=== PATIENT | male | born 1960 | race African-American/Black ===

== ENCOUNTER 2018-01-05 10:58 | Inpatient (IN) | payer SELFPAY ==
--- NOTE | 2018-01-05 11:06 | DR.SOBA ---
HPI - Time Seen Time seen: 10:50 - HPI Comment HPI Comment: HISTORY BELOW. - Complaints Chief Complaint Doctors Comments: INCREASING SOB, EDEMA AND CHEST PAIN. SYMPTOMS WORSE TODAY. BP ELEVATED. NO HISTORY OF HTN. PATIENT SAID HE DOES NOT TAKE MEDICATIONS ON DAILY BASES AND HAVE NO KNOWN MEDICAL ILLNESS. OXYGEN DESATURATION IN THE 80S WAS NOTED IN ED. - Reviewed Nurses Notes Reviewed: Yes - Source History Provided: Patient - Mode of Arrival Mode of Arrival: Ambulatory - Duration Duration: Days - Context Onset:: At Rest PE Risk Factors:: None History of:: None Currently on:: Neither Prehospital Care:: None - Modifying Factors Worsens:: Lying Flat Improves:: Sitting Up - Associated Signs and Symptoms Associated Signs and Symptoms: Wheeze - If Chest Pain Quality: Sharp Location: Substernal - If Cough Cough: Productive, White ROS - Review of Systems Constitutional: Weakness, Fatigue Eyes: No Symptoms Reported ENTM: Nose Congestion Respiratoy: Short of Breath, Wheezing. negative: Hemoptysis Cardiovascular: Edema Gastrointestinal/Abdominal: Abdominal Pain Genitourinary: No Symptoms Reported Neurological: Weakness Musculoskeletal: No Symptoms Reported Integumentary: No Symptoms Reported Hematologic/Lymphatic: No Symptoms Reported Endocrine: No Symptoms Reported All Other Systems: Reviewed and Negative PE - Vital Signs Vitals: Temperature 98.2 F Pulse Rate [Right Radial] 113 Pulse Rate 112 Respiratory Rate 40 Blood Pressure [Left Arm] 183/126 Blood Pressure 156/107 O2 Sat by Pulse Oximetry 97 - General Limitations: No Limitations General Appearance: Alert - Head Head Exam: Normal Inspection - Eyes Eye exam: Normal Appearance - ENT ENT Exam: Normal External Ear Exam - Neck Neck Exam: Trachea Midline - Chest Chest Inspection: Symmetric Chest Wall Rise - Respiratory Respiratory Exam: Normal Lung Sounds Bilat Respiratory Exam: Bilateral Wheezing, Bilateral Rhonchi, Left Wheezing, Left Rhonchi, Right Wheezing, Right Rhonchi, Upper Wheezing, Upper Rhonchi, Lower Wheezing, Lower Rhonchi - Cardiovascular Cardiovascular Exam: Regular Rate - Abdominal Exam Abdominal Exam: Normal Bowel Sounds, Soft. negative: Tenderness - Extremities Extremities Exam: Edema (3 PLUS EDEMA LOWER EXTREMITIES.) - Back Back Exam: Normal Inspection - Neurologic Neurological Exam: Alert, Oriented X3 - Psychiatric Psychiatric Exam: Normal Affect, Normal Mood - Skin Skin Exam: Normal Color MDM - Differential Diagnosis Differential Diagnosis: CHF, Mycardial Infarction, Pulmonary embolism, Respiratory Insufficiency Course - Treatment Treatment: SEE ORDERS. - Education/Counseling Education/Counseling: Patient, Education Educated On: Diagnosis ROR - Labs Reviewed Laboratory Results Reviewed?: Yes Result Diagrams: 01/05/18 11:12 01/05/18 11:12 Laboratory: WBC 7.3 X10^3/uL (3.6-10.0) 01/05/18 11:12 RBC 4.56 X10^6/uL (4.7-6.0) L 01/05/18 11:12 Hgb 14.0 g/dL (13.5-18.0) 01/05/18 11:12 Hct 41.3 % (42.0-54.0) L 01/05/18 11:12 MCV 90.6 fL (80.0-100.0) 01/05/18 11:12 MCH 30.8 pg (27.0-34.0) 01/05/18 11:12 MCHC 34.0 g/dL (33.0-35.0) 01/05/18 11:12 RDW 13.5 % (11.6-16.5) 01/05/18 11:12 Plt Count 444 X10^3/uL (150.0-450.0) 01/05/18 11:12 MPV 8.7 fL (7.4-11.0) 01/05/18 11:12 Neut % (Auto) 72.0 % (42.0-75.0) 01/05/18 11:12 Lymph % (Auto) 16.3 % (21.0-51.0) L 01/05/18 11:12 [place] % (Auto) 9.5 % (0.0-13.0) 01/05/18 11:12 Eos % (Auto) 0.8 % (0.9-2.9) L 01/05/18 11:12 Baso % (Auto) 1.4 % (0.2-1.0) H 01/05/18 11:12 Neut # (Auto) 5.2 x10^3/uL (2.2-4.8) H 01/05/18 11:12 Lymph # (Auto) 1.2 X10^3/uL (1.3-2.9) L 01/05/18 11:12 [place] # (Auto) 0.7 x10^3/uL (0.3-0.8) 01/05/18 11:12 Eos # (Auto) 0.1 x10^3/uL (0.0-0.2) 01/05/18 11:12 Baso # (Auto) 0.1 X10^3/uL (0.0-0.1) 01/05/18 11:12 Absolute Nucleated RBC 0.1 /100WBC 01/05/18 11:12 Sodium 142 mmol/L (136-145) 01/05/18 11:12 Corrected Sodium TNP 01/05/18 11:12 Potassium 3.8 mmol/L (3.5-5.1) 01/05/18 11:12 Chloride 101 mmol/L (98-107) 01/05/18 11:12 Carbon Dioxide 32.1 mmol/L (21-32) H 01/05/18 11:12 BUN 13 mg/dL (7-18) 01/05/18 11:12 Creatinine 1.18 mg/dL (0.70-1.30) 01/05/18 11:12 Est GFR (MDRD) Af Amer > 60 (>60) 01/05/18 11:12 Est GFR (MDRD) Non-Af > 60 (>60) 01/05/18 11:12 Glucose 107 mg/dL (65-99) H 01/05/18 11:12 Calcium 8.9 mg/dL (8.5-10.1) 01/05/18 11:12 Corrected Calcium 9.7 mg/dL (8.5-10.1) 01/05/18 11:12 Total Bilirubin 0.90 mg/dL (0.2-1.0) 01/05/18 11:12 AST 32 Units/L (15-37) 01/05/18 11:12 ALT 44 Units/L (12-78) 01/05/18 11:12 Alkaline Phosphatase 104 Units/L (46-116) 01/05/18 11:12 Creatine Kinase 165 Units/L (39-308) 01/05/18 13:32 CK-MB (CK-2) 1.4 ng/mL (0-4.0) 01/05/18 13:32 CK/CKMB % Calc 0.9 % (<4) 01/05/18 13:32 Troponin I 0.06 ng/mL (0-1.5) 01/05/18 13:32 B-Natriuretic Peptide 890 pg/mL (0-79) H* 01/05/18 11:12 Total Protein 8.3 g/dL (6.4-8.2) H 01/05/18 11:12 Albumin 3.0 g/dL (3.4-5.0) L 01/05/18 11:12 Globulin 5.3 g/dL (2.5-4.5) H 01/05/18 11:12 Albumin/Globulin Ratio 0.6 Ratio (1.1-2.1) L 01/05/18 11:12 - XRAY XRAY Interpreted by: Radiologist XRAY Findings: REPORT DISCUSS WITH PATIENT. - EKG Rhythm: ST (EKG NOTED.) - Diagnosis Discharge Problem: Abnormal cardiac enzyme level CHF (congestive heart failure) Qualifiers: Heart failure type: unspecified Heart failure chronicity: acute Qualified Code( s): I50.9 - Heart failure, unspecified Hypertension Qualifiers: Hypertension type: unspecified Qualified Code(s): I10 - Essential (primary) hypertension - Discharge Plan Disposition: ADMITTED INPATIENT Condition: Stable - Follow ups/Referrals - Instructions
[2018-01-05 11:23] LABS: BASOPHILS # (AUTO) 0.1 X10^3/uL (0.0-0.1); BASOPHILS % (AUTO) 1.4 % (0.2-1.0); EOSINOPHILS # (AUTO) 0.1 x10^3/uL (0.0-0.2); EOSINOPHILS % (AUTO) 0.8 % (0.9-2.9); HEMATOCRIT 41.3 % (42.0-54.0); LYMPHOCYTES # (AUTO) 1.2 X10^3/uL (1.3-2.9); LYMPHOCYTES % (AUTO) 16.3 % (21.0-51.0); MEAN CORPUSCULAR HEMOGLOBIN 30.8 pg (27.0-34.0); MEAN CORPUSCULAR VOLUME 90.6 fL (80.0-100.0); MEAN PLATELET VOLUME 8.7 fL (7.4-11.0); MONOCYTES # (AUTO) 0.7 x10^3/uL (0.3-0.8); MONOCYTES % (AUTO) 9.5 % (0.0-13.0); NEUTROPHILS # (AUTO) 5.2 x10^3/uL (2.2-4.8); PLATELET COUNT 444 X10^3/uL (150.0-450.0); RED BLOOD COUNT 4.56 X10^6/uL (4.7-6.0); RED CELL DISTRIBUTION WIDTH 13.5 % (11.6-16.5); WHITE BLOOD COUNT 7.3 X10^3/uL (3.6-10.0)
[2018-01-05] MEDS ORDERED: DUONEB 0.5 MG/3 MG NEB ONE (11:24)
[2018-01-05 11:40] LABS: BLOOD UREA NITROGEN 13 mg/dL (7-18); CALCIUM 8.9 mg/dL (8.5-10.1); CARBON DIOXIDE 32.1 mmol/L (21-32); CHLORIDE 101 mmol/L (98-107); CREATININE 1.18 mg/dL (0.70-1.30); SODIUM 142 mmol/L (136-145); TROPONIN I 0.06 ng/mL (0-1.5); eGFR BLACK RACES > 60 (>60); eGFR NON BLACK RACES > 60 (>60)
[2018-01-05 11:44] LABS: ALANINE AMINOTRANSFERASE 44 Units/L (12-78); ALKALINE PHOSPHATASE 104 Units/L (46-116); ASPARTATE AMINO TRANSFERASE 32 Units/L (15-37); CKMB % 0.8 % (<4); COR CA(FOR HYPOALB) 9.7 mg/dL (8.5-10.1); CREATINE KINASE 161 Units/L (39-308); CREATINE KINASE MB 1.3 ng/mL (0-4.0); TOTAL PROTEIN 8.3 g/dL (6.4-8.2)
[2018-01-05 11:48] LABS: B-TYPE NATRIURETIC PEPTIDE 890 pg/mL (0-79)
[2018-01-05] MEDS ORDERED: CATAPRES TAB 0.2 MG PO ONE (12:10)
[2018-01-05] MEDS ORDERED: CATAPRES TAB 0.2 MG ONE (12:28)
--- NOTE | 2018-01-05 13:26 | RAD ---
HISTORY: Shortness of breath Study: AP portable chest Comparison: None Findings: There appears to be moderate to moderately severe congestive heart failure. There appear to be small bilateral pleural effusions. Moderate to mildly severe cardiomegaly is present. Widening of the ellis perior mediastinum is noted, most likely due to patient body habitus. No evidence of pneumothorax is noted. No acute bony abnormalities are identified. IMPRESSION: 1. Moderate to moderately severe cardiomegaly with findings suggesting moderate to moderately severe congestive heart failure. I cannot exclude underlying pneumonia. Reported By:
[2018-01-05 13:59] LABS: CKMB % 0.9 % (<4); CREATINE KINASE MB 1.4 ng/mL (0-4.0); TROPONIN I 0.06 ng/mL (0-1.5)
[2018-01-05 16:18] VITALS: BMI 35.2
[2018-01-05 18:41] LABS: CKMB % 0.9 % (<4); CREATINE KINASE MB 1.3 ng/mL (0-4.0); TROPONIN I 0.06 ng/mL (0-1.5)
[2018-01-05] MEDS ORDERED: AMBIEN PO PRN (19:37)
[2018-01-05] MEDS ORDERED: TUSSIONEX PENNKINETIC SUSP PO PRN (19:37)
[2018-01-05] MEDS: ZESTRIL TAB 10 MG PO SCH (20:11)
[2018-01-05] MEDS: LASIX IVP SCH (20:11)
[2018-01-05] MEDS: MICRO K EXTEN CAP 10 MEQ PO SCH (20:11)
[2018-01-06 01:33] LABS: CREATINE KINASE MB 1.4 ng/mL (0-4.0); TROPONIN I 0.06 ng/mL (0-1.5)
[2018-01-06 06:23] LABS: BASOPHILS # (AUTO) 0.1 X10^3/uL (0.0-0.1); EOSINOPHILS # (AUTO) 0.2 x10^3/uL (0.0-0.2); EOSINOPHILS % (AUTO) 2.6 % (0.9-2.9); HEMATOCRIT 37.7 % (42.0-54.0); HEMOGLOBIN 12.7 g/dL (13.5-18.0); LYMPHOCYTES # (AUTO) 1.3 X10^3/uL (1.3-2.9); LYMPHOCYTES % (AUTO) 15.7 % (21.0-51.0); MEAN CORPUSCULAR HEMOGLOBIN 30.6 pg (27.0-34.0); MEAN CORPUSCULAR HGB CONC 33.7 g/dL (33.0-35.0); MEAN CORPUSCULAR VOLUME 90.8 fL (80.0-100.0); MEAN PLATELET VOLUME 9.2 fL (7.4-11.0); MONOCYTES # (AUTO) 0.8 x10^3/uL (0.3-0.8); MONOCYTES % (AUTO) 9.4 % (0.0-13.0); NEUTROPHILS # (AUTO) 5.7 x10^3/uL (2.2-4.8); NEUTROPHILS % (AUTO) 71.3 % (42.0-75.0); PLATELET COUNT 393 X10^3/uL (150.0-450.0); RED BLOOD COUNT 4.16 X10^6/uL (4.7-6.0); RED CELL DISTRIBUTION WIDTH 13.8 % (11.6-16.5); WHITE BLOOD COUNT 8.1 X10^3/uL (3.6-10.0)
[2018-01-06 06:46] LABS: ALANINE AMINOTRANSFERASE 42 Units/L (12-78); ALBUMIN 2.5 g/dL (3.4-5.0); ALKALINE PHOSPHATASE 89 Units/L (46-116); ASPARTATE AMINO TRANSFERASE 31 Units/L (15-37); BLOOD UREA NITROGEN 16 mg/dL (7-18); CALCIUM 8.3 mg/dL (8.5-10.1); CARBON DIOXIDE 33.6 mmol/L (21-32); CHLORIDE 105 mmol/L (98-107); CHOL/HDL RATIO 4.3 (0.0-5.0); CHOLESTEROL 107 mg/dL (0-200); COR CA(FOR HYPOALB) 9.5 mg/dL (8.5-10.1); CREATININE 1.13 mg/dL (0.70-1.30); HDL CHOLESTEROL 25 mg/dL (40-60); SODIUM 145 mmol/L (136-145); TOTAL PROTEIN 7.1 g/dL (6.4-8.2); TRIGLYCERIDES 78 mg/dL (0-150); eGFR BLACK RACES > 60 (>60); eGFR NON BLACK RACES > 60 (>60)
--- NOTE | 2018-01-06 07:20 | RAD ---
HISTORY: 57-year-old male with CHF. Study: Frontal view of the chest. Comparison: Chest radiograph 01/05/2018 Findings: The trachea is midline. The cardiac silhouette is stably enlarged with worsening diffuse bilateral h azy/patchy airspace opacities and likely trace effusions. No pneumothorax. Soft tissues are unremark able. Osseous structures are unremarkable. IMPRESSION: 1. Worsening airspace disease likely human resources representative of worsening pulmonary edema in the setting of ca rdiomegaly with history of CHF. Correlate with serology for CHF exacerbation and underlying infectiou s process. Reported By:
[2018-01-06] MEDS ORDERED: K-LYTE EFFERVESCENT PO PRN (07:57)
[2018-01-06] MEDS ORDERED: MAGNESIUM SULFATE 1 GM/100 mL PREMIX 1 GM/100 ML BAG IV PRN (07:57)
[2018-01-06] MEDS ORDERED: K-RIDER 10 MEQ/NS 100 ML 10 MEQ/100 ML BAG IV PRN (07:57)
[2018-01-06] MEDS ORDERED: POTASSIUM CHL 40 MEQ/NS 0.45% 500 ML IV PRN (07:57)
[2018-01-06] MEDS ORDERED: POTASSIUM CHLORIDE LIQ 20 MEQ UDC PO PRN (07:57)
[2018-01-06] MEDS ORDERED: POTASSIUM CHL 60 MEQ/NS 0.45% 500 ML IV PRN (07:57)
[2018-01-06] MEDS ORDERED: LASIX IVP SCH ×2 (09:00→14:00)
[2018-01-06] MEDS ORDERED: LASIX ONE (09:06)
[2018-01-06] MEDS: ZESTRIL TAB 10 MG PO SCH (09:40)
[2018-01-06] MEDS: LASIX IVP SCH (09:40)
[2018-01-06] MEDS: MICRO K EXTEN CAP 10 MEQ PO SCH (09:41)
--- NOTE | 2018-01-06 11:47 | DR.H&P ---
H&P - History & Physical for Day of: H&P Date: 01/05/18 - Chief Complaint Chief Complaint: SOB - Allergies Allergies/Adverse Reactions: Allergies Allergy/AdvReac Type Severity Reaction Status Date / Time No Known Drug Allergies Allergy Verified 01/05/18 11:00 - History of Present Illness History of Present Illness: 57BM ER ADMISSION WITH CO CHEST PRESSURE, SOB. PT CXR REVEALED FINDING OF CHF. PT DENIES ANY HX OF HTN OR CARDIAC DISEASE. PT STATES HE IS A DAILY SMOKER AND DRINKS ETOH ~1 PINT PER WEEK. PT STATES SYMPTOMS COME ON FAST WITH CHEST PRESSURE AND SOB. PT DENIES ANY HX OF ASTHMA. CO OCCASSIONAL SEASONAL ALLERGIES. PT ADMITTED ICU FOR TREATMENT OF CHF AND CARDIAC MONITORING - Past Medical History Additional Medical History: ALLERGIES, SEASONAL - Past Surgical History Surgical History: Abdominal Surgery - Family History Family Medical History: Diabetes Mellitus, Cancer - Social History Does patient currently use any type of tobacco product: Yes Have you used tobacco products in the last 12 months: Yes Type of Tobacco Use: Cigarettes How many years tobacco product used: 20 Does any household member use tobacco: No Alcohol Use: None Drug Use: None - Medications Home Medications: NK [NK] 01/05/18 [History Confirmed 01/05/18] - Review of Systems Constitutional: Malaise Eyes: No Symptoms Reported ENT: No Symptoms Reported Respiratory: Shortness of Breath, SOB with Excertion, Wheezing Cardiovascular: Chest Pain, Edema Gastrointestinal: No Symptoms Reported Genitourinary: No Symptoms Reported Musculoskeletal: No Symptoms Reported Skin: No Symptoms Reported Neurological: No Symptoms Reported - Physical Exam Vital Signs: Temperature 98.1 F Pulse Rate [Apical] 100 Pulse Rate [Right Radial] 96 Pulse Rate 112 Respiratory Rate 32 Blood Pressure [Left Arm] 144/100 Blood Pressure 156/107 O2 Sat by Pulse Oximetry 94 Oriented: Normal Eyes: Normal Ear: Normal Nose: Normal Throat: Normal Respiratory: RML Diminished, RLL Diminished, LML Diminished, LLL Diminished Cardiovascular: Normal, Edema : Normal Auscultation: Bowel Sounds: Normal Palpation: Normal Tenderness: Normal Skin: Normal Musculoskeletal: Normal Psychiatric: Anxiety Speech Pattern: Clear, Appropriate - Assessment/Plan (1) Abnormal cardiac enzyme level Status: Acute Plan: ADMIT, ICU CARDIAC MONTORING. SERIAL CE AND EKG. IV LASIX, BP CONTROL. REPEAT AM CXR (2) CHF (congestive heart failure) Qualifiers: Heart failure type: unspecified Heart failure chronicity: acute Qualified Code(s): I50.9 - Heart failure, unspecified Status: Acute (3) Hypertension Qualifiers: Hypertension type: unspecified Qualified Code(s): I10 - Essential (primary ) hypertension Status: Acute
[2018-01-06] MEDS: XOPENEX 1.25 MG/3 ML NEBULE NEB SCH ×3 (12:04→16:19)
[2018-01-06] MEDS ORDERED: NS 100 ML IV 100 ML IV ONE (12:24)
--- NOTE | 2018-01-06 13:22 | CT ---
CT ANGIOGRAPHY OF THE CHEST CLINICAL HISTORY: 57-year-old male with shortness of breath. COMPARISON: None. TECHNIQUE: CT angiogram of the chest was performed following the uncomplicated administration of 75 m L Omnipaque 350 intravenous contrast as per routine pulmonary embolus protocol. Coronal and Sagittal reformats provided. MIP reformats are submitted for review. FINDINGS: No pulmonary embolus is seen. There is no thoracic aortic dissection. Significant cardiomegaly without pericardial effusion. There is no axillary or mediastinal lymphaden opathy. Diffuse regions of ground-glass opacity/consolidation with air bronchograms throughout the left upper and lower lobes and to a lesser extent within the right upper lobe, right middle lobe and right lowe r lobe. Small effusions, right greater the left with fluid within the fissures bilaterally. The trach ea and mainstem bronchi are patent. No pneumothorax. Imaged upper abdomen is unremarkable. The arteriovascular structures are within normal limits. Soft tissues are normal. The osseous structures are intact without fracture or malalignment. IMPRESSION: 1. No pulmonary embolus. 2. Diffuse ground-glass opacity with air bronchograms throughout the lungs with small bilateral effus ions and fluid within the fissures. Edema, infection and hemorrhage can present this way, most likely represents a component of edema with diffuse infection. Correlate clinically. Reported By:
[2018-01-06 16:44] VITALS: BP 135/72
== END 2018-01-06 16:37 | disposition short-term general hospital (02) | DRG 293 ==
LOC: ER 11:20 → ICU 15:29
PROVIDERS: ADMIT Internal Medicine; ATTEND Internal Medicine
DX: I50.9 Heart failure, unspecified (principal); R07.89 Other chest pain; I10 Essential (primary) hypertension
CPT/HCPCS: 36415; 71045; 71275; 80053; 80061; 82550; 82553; 83735; 83880; 84484; 85025; 87070; 87205; 93005; 93010; 94640; 96365; 96367; 96374; 99238; 99284; A4216; A4222; J1940; J7620